=== PATIENT | male | born 1955 | race Caucasian/White ===

== ENCOUNTER 2016-10-12 11:09 | Inpatient (IN) | payer OTHER, SELFPAY ==
[~2016-10-12] VITALS: Ht 172.7 cm; Wt 122.5 kg
[2016-10-12] MEDS ORDERED: ASPIRIN CHEWABL81 MG PO (14:32)
[2016-10-12] MEDS ORDERED: GLUCOTROL 10 MG10 MG PO (14:33)
[2016-10-12] MEDS ORDERED: FARXIGA10 MG PO (14:33)
[2016-10-12] MEDS ORDERED: COREG 25MG TAB25 MG PO (14:33)
[2016-10-12] MEDS ORDERED: LASIX40 MG PO (14:34)
[2016-10-12] MEDS ORDERED: KLONOPIN1 MG PO (14:35)
[2016-10-12] MEDS ORDERED: MOBIC15 MG PO (14:36)
[2016-10-12] MEDS ORDERED: VITAMIN D5000 UNIT PO (14:37)
[2016-10-12] MEDS ORDERED: LYRICA75 MG PO (14:37)
[2016-10-12] MEDS ORDERED: VITAMIN D250000 UNIT PO (14:38)
[2016-10-12] MEDS ORDERED: VITAMIN B-1000 MCG/M IM (14:39)
[2016-10-12] MEDS ORDERED: MULTIVITAMINS1 EAC1 PO (14:40)
[2016-10-12 15:37] LABS: HEMOGLOBIN 14.4 gm/dl (14.0-17.5); RED BLOOD COUNT 4.63 M/UL (4.20-5.50); WHITE BLOOD COUNT 8.1 K/UL (4.5-11.0)
[2016-10-12 23:55] LABS: BUN/CREATININE RATIO 31 (0-10)
[2016-10-13 06:28] LABS: HEMOGLOBIN 13.9 gm/dl (14.0-17.5); RED BLOOD COUNT 4.42 M/UL (4.20-5.50); WHITE BLOOD COUNT 7.1 K/UL (4.5-11.0)
[2016-10-13 20:57] LABS: BUN/CREATININE RATIO 34 (0-10)
[2016-10-14 03:43] LABS: HEMOGLOBIN 13.7 gm/dl (14.0-17.5); RED BLOOD COUNT 4.32 M/UL (4.20-5.50)
[2016-10-14 03:49] LABS: WHITE BLOOD COUNT 11.1 K/UL (4.5-11.0)
[2016-10-14 04:05] LABS: BUN/CREATININE RATIO 34 (0-10)
[2016-10-14 18:31] LABS: BUN/CREATININE RATIO 28 (0-10)
[2016-10-15 03:56] LABS: HEMOGLOBIN 13.5 gm/dl (14.0-17.5); RED BLOOD COUNT 4.25 M/UL (4.20-5.50); WHITE BLOOD COUNT 12.3 K/UL (4.5-11.0)
[2016-10-15 04:19] LABS: BUN/CREATININE RATIO 33 (0-10)
[2016-10-16 03:36] LABS: HEMOGLOBIN 13.1 gm/dl (14.0-17.5); RED BLOOD COUNT 4.12 M/UL (4.20-5.50)
[2016-10-16 03:37] LABS: WHITE BLOOD COUNT 8.8 K/UL (4.5-11.0)
[2016-10-17 03:52] LABS: HEMOGLOBIN 14.1 gm/dl (14.0-17.5); RED BLOOD COUNT 4.51 M/UL (4.20-5.50); WHITE BLOOD COUNT 9.9 K/UL (4.5-11.0)
--- NOTE | 2016-10-18 05:22 | NUR ---
care assumed from [facility] crow rn
--- NOTE | 2016-10-18 05:29 | NUR ---
care assumed from [facility] crow rn @ 0030.
[2016-10-18] MEDS ORDERED: NORVASC10 MG PO (11:10)
[2016-10-18] MEDS ORDERED: IMDUR ER TAB 6060 MG PO (11:11)
[2016-10-18] MEDS ORDERED: LEVAQUIN500 MG PO (11:12)
[2016-10-18] MEDS ORDERED: LASIX40 MG PO (11:12)
[2016-10-18] MEDS ORDERED: IPRAT-ALBUT 0.5-3 ML INH (11:14)
[2016-10-18] MEDS ORDERED: EFFEXOR XR75 MG PO (11:49)
[2016-10-18] MEDS ORDERED: ACCUPRIL20 MG PO (14:34)
== END 2016-10-18 12:24 | disposition home or self-care (01) | DRG 291 ==
LOC: CCU 13:25 → MED SURG 4 13:25 → CCU 10-13 02:29 → PROG CARE 10-17 12:16 → M/S 10-17 17:10
PROVIDERS: Emergency Medicine; ADMIT Internal Medicine
DX: I13.0 Hypertensive heart and chronic kidney disease with heart failure and stage 1 through stage 4 chronic kidney disease, or unspecified chronic kidney disease (principal); I50.23 Acute on chronic systolic (congestive) heart failure; J44.1 Chronic obstructive pulmonary disease with (acute) exacerbation; J44.0 Chronic obstructive pulmonary disease with (acute) lower respiratory infection; J45.902 Unspecified asthma with status asthmaticus; E72.51 Non-ketotic hyperglycinemia; E87.4 Mixed disorder of acid-base balance; Z68.41 Body mass index [BMI] 40.0-44.9, adult; E11.00 Type 2 diabetes mellitus with hyperosmolarity without nonketotic hyperglycemic-hyperosmolar coma (NKHHC); I25.10 Atherosclerotic heart disease of native coronary artery without angina pectoris; E66.9 Obesity, unspecified; Z68.39 Body mass index [BMI] 39.0-39.9, adult; E11.40 Type 2 diabetes mellitus with diabetic neuropathy, unspecified; E78.5 Hyperlipidemia, unspecified; F41.9 Anxiety disorder, unspecified; I25.5 Ischemic cardiomyopathy; R06.00 Dyspnea, unspecified; J20.9 Acute bronchitis, unspecified; I45.10 Unspecified right bundle-branch block; E11.22 Type 2 diabetes mellitus with diabetic chronic kidney disease; N18.3 Chronic kidney disease, stage 3 (moderate); T38.0X5A Adverse effect of glucocorticoids and synthetic analogues, initial encounter; Y92.230 Patient room in hospital as the place of occurrence of the external cause; E66.01 Morbid (severe) obesity due to excess calories; I25.2 Old myocardial infarction; Z98.61 Coronary angioplasty status; Z95.1 Presence of aortocoronary bypass graft; Z98.84 Bariatric surgery status; Z83.3 Family history of diabetes mellitus; Z82.49 Family history of ischemic heart disease and other diseases of the circulatory system; Z82.3 Family history of stroke; Z87.891 Personal history of nicotine dependence; Z95.810 Presence of automatic (implantable) cardiac defibrillator; Z79.82 Long term (current) use of aspirin; Z79.84 Long term (current) use of oral hypoglycemic drugs; Z79.899 Other long term (current) drug therapy
CPT/HCPCS: ECHO; 36415; 36600; 71020; 80048; 82009; 82550; 82553; 82800; 82803; 82947; 82962; 83605; 83735; 83880; 84100; 84484; 85025; 85027; 87040; 87070; 87205; 93005; 93306; 94640; 94664; J0456; J0696; J1650; J1940; J1956; J2270; J2405; J2550; J2920; J2930; J3420; J7030

== ENCOUNTER → 2020-09-12 | Outpatient (CLI) | payer MEDICARE, OTHER ==
[~2020-09-12] MED LIST: ACCUPRIL20 MG PO; ALDACTONE25 MG PO; ASPIRIN CHEWABL81 MG PO; COREG 25MG TAB25 MG PO; COZAAR50 MG PO; CRESTOR10 MG PO; EFFEXOR XR75 MG PO; FARXIGA10 MG PO; GLUCOTROL 10 MG10 MG PO; IMDUR ER TAB 6060 MG PO; IPRAT-ALBUT 0.5-3 ML INH; IPRAT-ALBUT 0.5-3 ML NEB; KLONOPIN1 MG PO; LASIX40 MG PO; LEVAQUIN500 MG PO; LYRICA150 MG PO; LYRICA75 MG PO; MOBIC15 MG PO; MULTIVITAMINS1 EAC1 PO; NORVASC10 MG PO; PREDNISONE10 MG PO; SODIUM BICARBO650 M1 PO; VICODIN ES 7.51 EACH PO; VITAMIN B-1000 MCG/M IM; VITAMIN D250000 UNIT PO; VITAMIN D5000 UNIT PO; ZAROXOLYN/DIULO5 MG PO; ZOVIRAX 800 MG800 MG PO; [UNRECOGNIZED DRUG - OTHER] PO
== END ==
LOC: EXRD 11:23
DX: L40.50 Arthropathic psoriasis, unspecified (principal); M79.641 Pain in right hand; M79.642 Pain in left hand; M19.041 Primary osteoarthritis, right hand; R93.6 Abnormal findings on diagnostic imaging of limbs
CPT/HCPCS: 72202; 73130

== ENCOUNTER → 2020-11-21 | Outpatient (CLI) | payer MEDICARE, OTHER | LOC: LAB 13:26 | DX: D50.0 Iron deficiency anemia secondary to blood loss (chronic) (principal) | CPT/HCPCS: 36415; 86850; 86900; 86901; 86920; J7050; P9016 ==

== ENCOUNTER → 2020-11-22 | Outpatient (CLI) | payer MEDICARE, OTHER ==
[2020-11-22 12:53] LABS: HEMOGLOBIN 10.4 gm/dl (14.0-17.5); RED BLOOD COUNT 3.66 M/UL (4.20-5.50); WHITE BLOOD COUNT 4.8 K/UL (4.5-11.0)
== END ==
LOC: OPSV 07:00
PROVIDERS: Internal Medicine
DX: D50.0 Iron deficiency anemia secondary to blood loss (chronic) (principal)
CPT/HCPCS: 36415; 36430; 85027; J7050; P9016

== ENCOUNTER 2021-09-27 13:01 | Emergency (ER) | payer OTHER ==
[~2021-09-27] VITALS: Ht 175.3 cm; Wt 120.2 kg
[2021-09-27 14:12] LABS: HEMOGLOBIN 9.7 gm/dl (14.0-17.5); RED BLOOD COUNT 3.36 M/UL (4.20-5.50); WHITE BLOOD COUNT 6.3 K/UL (4.5-11.0)
[2021-09-29] MEDS ORDERED: CLONAZEPAM1 MG PO (10:58)
[2021-09-29] MEDS ORDERED: NITROGLYCERIN0.4 MG SL (11:00)
[2021-09-29] MEDS ORDERED: RANEXA500 MG PO (11:01)
[2021-09-29] MEDS ORDERED: CALCITRIOL0.25 MCG PO (11:02)
[2021-09-29] MEDS ORDERED: LYRICA100 MG PO (11:02)
[2021-09-29] MEDS ORDERED: ISOSORBIDE MONO30 MG PO (11:03)
[2021-09-29] MEDS ORDERED: VITAMIN E400 UNI6 PO (11:04)
[2021-09-29] MEDS ORDERED: ZEBETA 5 MG TAB5 MG PO (11:04)
[2021-09-29] MEDS ORDERED: BUMETANIDE1 MG PO (11:04)
[2021-09-29] MEDS ORDERED: CYANOCOBAL1000 MCG/1 INJ (11:05)
[2021-09-29] MEDS ORDERED: VITAMIN D21250 MCG PO (11:06)
[2021-09-29] MEDS ORDERED: FEROSUL325 MG PO (11:07)
[2021-09-29] MEDS ORDERED: GLIPIZIDE5 MG PO (11:08)
[2021-09-29] MEDS ORDERED: CRESTOR10 MG PO (11:08)
[2021-09-29] MEDS ORDERED: HYDROCODON-ACE1 EAC4 PO ×2 (11:09→11:33)
[2021-09-29 19:00] LABS: HEMOGLOBIN 10.8 gm/dl (14.0-17.5)
[2021-09-29 19:03] LABS: RED BLOOD COUNT 3.74 M/UL (4.20-5.50)
== END 2021-09-30 00:20 | disposition short-term general hospital (02) ==
LOC: ER1 13:01
PROVIDERS: Emergency Medicine
DX: I50.813 Acute on chronic right heart failure (principal); R60.9 Edema, unspecified; E83.51 Hypocalcemia; Z20.822 Contact with and (suspected) exposure to COVID-19; E78.5 Hyperlipidemia, unspecified; I25.10 Atherosclerotic heart disease of native coronary artery without angina pectoris
CPT/HCPCS: 71045; 80048; 80053; 82550; 82553; 83735; 83880; 84439; 84443; 84484; 85025; 85610; 93005; 96374; 99285; J1170; U0002

== ENCOUNTER 2021-10-10 13:43 | Emergency (ER) | payer OTHER ==
[~2021-10-10 13:43] MED LIST changes: +BUMETANIDE1 MG PO; +CALCITRIOL0.25 MCG PO; +CLONAZEPAM1 MG PO; +CYANOCOBAL1000 MCG/1 INJ; +FEROSUL325 MG PO; +GLIPIZIDE5 MG PO; +HYDROCODON-ACE1 EAC4 PO; +ISOSORBIDE MONO30 MG PO; +LYRICA100 MG PO; +NITROGLYCERIN0.4 MG SL; +RANEXA500 MG PO; +VITAMIN D21250 MCG PO; +VITAMIN E400 UNI6 PO; +ZEBETA 5 MG TAB5 MG PO
[2021-10-10 14:02] LABS: HEMOGLOBIN 9.1 gm/dl (14.0-17.5); RED BLOOD COUNT 3.11 M/UL (4.20-5.50); WHITE BLOOD COUNT 17.1 K/UL (4.5-11.0)
[2021-10-10 15:34] LABS: BUN/CREATININE RATIO 21 (0-10)
== END 2021-10-10 18:13 | disposition short-term general hospital (02) ==
LOC: ER1 13:43
PROVIDERS: Emergency Medicine
DX: I95.9 Hypotension, unspecified (principal); I12.9 Hypertensive chronic kidney disease with stage 1 through stage 4 chronic kidney disease, or unspecified chronic kidney disease; E11.22 Type 2 diabetes mellitus with diabetic chronic kidney disease; N18.9 Chronic kidney disease, unspecified; N17.9 Acute kidney failure, unspecified; E11.65 Type 2 diabetes mellitus with hyperglycemia; E83.51 Hypocalcemia; I25.10 Atherosclerotic heart disease of native coronary artery without angina pectoris; Z95.1 Presence of aortocoronary bypass graft; Z20.822 Contact with and (suspected) exposure to COVID-19
CPT/HCPCS: 36600; 51702; 70450; 71045; 80053; 81001; 82009; 82550; 82553; 82803; 82962; 83605; 84484; 85025; 85610; 85730; 87040; 87086; 93005; 94664; 96365; 96367; 96368; 96375; 99285; J0610; J2185; J7030; U0002

== ENCOUNTER 2021-11-02 22:21 | Emergency (ER) | payer OTHER | END 2021-11-02 23:15 | disposition home or self-care (01) | LOC: ER1 22:21 | DX: Z43.3 Encounter for attention to colostomy (principal); E11.9 Type 2 diabetes mellitus without complications; Z95.1 Presence of aortocoronary bypass graft; Z85.038 Personal history of other malignant neoplasm of large intestine; Z88.6 Allergy status to analgesic agent | CPT/HCPCS: 99283 ==